=== PATIENT | male | born 1935 | race Caucasian/White ===

== ENCOUNTER 2020-11-15 05:01 | Inpatient (IN) ==
[2020-11-15] MEDS ORDERED: Naloxone 0.4 MG/ML INJ IVP PRN ×2 (06:17→11:18)
[2020-11-15] MEDS ORDERED: *HR* HYDROmorphone (PF) 1 MG/ML SYRINGE IVP ONE (06:28)
[2020-11-15] MEDS ORDERED: 0.9 % Sodium Chloride 500 ML IVC ONE (06:29)
[2020-11-15] MEDS ORDERED: Potassium Chloride 40 MEQ/200 ML BAG IVPB PRN ×2 (06:33→11:18)
[2020-11-15] MEDS ORDERED: Ondansetron 4 MG/2 ML VIAL IVP PRN ×2 (06:41→11:18)
[2020-11-15 06:59] LABS: ABG Base Excess -12 mEq/L (-2 to 3); ABG HCO3 16 mEq/L (21-27); ABG Oxygen Saturation 70 % (95-98); ABG PCO2 44 mmHg (35-45); ABG PH 7.18 pH Units (7.32-7.45); ABG PO2 45 mmHg (85-104); ABG TCO2 18 mEq/L (20-26)
[2020-11-15] MEDS ORDERED: Artificial Tears SOLN 15 ML BOTTLE BOTH EYES PRN ×2 (07:10→11:18)
[2020-11-15 07:13] LABS: Hematocrit 54.3 % (37.5-50.1); Hemoglobin 16.6 g/dL (12.9-16.9); Mean Corpuscular HGB Conc 30.6 g/dL (31.6-35.5); Mean Corpuscular Hemoglobin 28.9 pg (28.0-33.3); Mean Corpuscular Volume 94.6 fL (83.0-100.0); Mean Platelet Volume 9.6 fL (9.4-12.4); Platelet Count 166 K/mcL (140-400); Red Blood Count 5.74 M/mcL (4.19-5.50); White Blood Count 6.5 K/mcL (4.3-11.1)
[2020-11-15] MEDS ORDERED: FentaNYL (PF) 1,000 MCG/100 ML IV.SOLN IVC SCH (07:15)
[2020-11-15 07:17] LABS: INR 1.3; Prothrombin Time 14.5 Seconds (9.4-12.1)
[2020-11-15] MEDS ORDERED: Heparin 1,000 UNITS/500 mL 500 ML ONE (07:22)
[2020-11-15] MEDS ORDERED: Albumin Human 5% 12.5 GM/250 ML IV.SOLN ONE ×2 (07:24→08:33)
[2020-11-15] MEDS ORDERED: *HR* Vasopressin 20 UNIT/ML VIAL ONE (07:24)
[2020-11-15] MEDS ORDERED: Lidocaine -MPF 2% 2 ML VIAL ONE (07:24)
[2020-11-15] MEDS ORDERED: *HR* FentaNYL (PF) 100 MCG/2 ML VIAL ONE (07:26)
[2020-11-15] MEDS ORDERED: *HR* Etomidate 40 MG/20 ML VIAL IVP ONE (07:27)
[2020-11-15] MEDS ORDERED: *HR* Rocuronium Bromide 50 MG/5 ML VIAL ONE (07:29)
[2020-11-15] MEDS ORDERED: *HR* Succinylcholine 200 MG/10 ML VIAL IVP ONE (07:29)
[2020-11-15] MEDS ORDERED: Midazolam HCl 50 MG/100 ML IV.SOLN IVC SCH (07:30)
[2020-11-15] MEDS ORDERED: Norepinephrine 4 MG/254 ML IV.SOLN IVC SCH (07:30)
[2020-11-15] MEDS ORDERED: *HR* Atropine Sulfate 8 MG/20 ML VIAL IVP ONE (07:32)
[2020-11-15] MEDS ORDERED: *HR* Phenylephrine 10 MG/ML VIAL ONE (07:33)
[2020-11-15 07:41] LABS: Calcium 8.1 mg/dL (8.6-10.3); Potassium 3.7 mEq/L (3.5-5.1); Troponin I 0.51 ng/mL (< 0.04)
[2020-11-15] MEDS ORDERED: *HR* Midazolam HCl 2 MG/2 ML VIAL ONE (07:51)
[2020-11-15 07:52] LABS: Lymphocytes # 3.9 K/mcL (0.6-4.6); Monocytes # 1.7 K/mcL (0.0-1.3); Neutrophils # 0.9 K/mcL (1.6-8.9)
[2020-11-15 07:53] LABS: Platelet Estimate Normal (Normal); Reactive Lymphocytes Present (Not Present)
[2020-11-15 07:57] LABS: Albumin/Globulin Ratio 1.5 (1.1-2.2); Bilirubin,Total 1.6 mg/dL (0.3-1.0); Carcinoembryonic Antigen 8.7 ng/mL (Less than 5.0)
[2020-11-15] MEDS ORDERED: Vancomycin 1,500 MG/265 ML IV.SOLN IVPB ONE (08:00)
[2020-11-15] MEDS ORDERED: Vancomycin 1 EACH in 0.9 % Sodium Chloride 250 ML IVPB SCH ×2 (08:00→11:18)
[2020-11-15] MEDS ORDERED: Artificial Tears SOLN 15 ML BOTTLE BOTH EYES SCH (08:00)
[2020-11-15 08:15] LABS: VBG Ionized Calcium 1.11 mmol/L (1.15-1.35)
[2020-11-15 08:26] LABS: Albumin 2.6 g/dL (3.5-5.7); Albumin/Globulin Ratio 1.4 (1.1-2.2); Bilirubin,Direct 0.5 mg/dL (0.0-0.2); Bilirubin,Indirect 0.9 mg/dL (0.0-1.0); Bilirubin,Total 1.4 mg/dL (0.3-1.0); Globulin 1.8 g/dL (2.4-3.5); Magnesium 2.1 mg/dL (1.6-2.6); Phosphorous 4.3 mg/dL (2.7-4.5); Total Protein 4.4 g/dL (6.4-8.9)
[2020-11-15 08:44] LABS: ABG Base Excess -10 mEq/L (-2 to 3); ABG Chloride 115 mEq/L (98-107); ABG Glucose 88 mg/dL (60-95); ABG HCO3 18 mEq/L (21-27); ABG Oxygen Saturation 96 % (95-98); ABG PCO2 46 mmHg (35-45); ABG PO2 98 mmHg (85-104); ABG TCO2 19 mEq/L (20-26)
[2020-11-15] MEDS ORDERED: Piperacillin/Tazobactam 3.375 GM in 0.9 % Sodium Chloride Mini Bag 100 ML IVPB ONE (08:52)
[2020-11-15] MEDS ORDERED: Micafungin 100 MG in 0.9 % Sodium Chloride Mini Bag 100 ML IVPB SCH (09:00)
[2020-11-15] MEDS ORDERED: Pantoprazole 40 MG VIAL IVP SCH (09:00)
[2020-11-15] MEDS ORDERED: Chlorhexidine Rinse 15 ML MOUTHWASH MM SCH (09:00)
[2020-11-15 09:06] LABS: ABG Base Excess -9 mEq/L (-2 to 3); ABG Chloride 117 mEq/L (98-107); ABG Glucose 81 mg/dL (60-95); ABG HCO3 18 mEq/L (21-27); ABG Ionized Calcium 1.38 mmol/L (1.15-1.35); ABG Oxygen Saturation 92 % (95-98); ABG PCO2 46 mmHg (35-45); ABG PH 7.21 pH Units (7.32-7.45); ABG PO2 78 mmHg (85-104); ABG TCO2 20 mEq/L (20-26)
[2020-11-15 09:38] LABS: ABG Base Excess -9 mEq/L (-2 to 3); ABG Chloride 116 mEq/L (98-107); ABG Glucose 82 mg/dL (60-95); ABG HCO3 18 mEq/L (21-27); ABG Ionized Calcium 1.18 mmol/L (1.15-1.35); ABG Oxygen Saturation 88 % (95-98); ABG PCO2 41 mmHg (35-45); ABG PH 7.25 pH Units (7.32-7.45); ABG PO2 63 mmHg (85-104); ABG TCO2 19 mEq/L (20-26)
[2020-11-15] MEDS ORDERED: D10% in Water 500 ML IVC PRN (11:00)
[2020-11-15] MEDS ORDERED: Piperacillin/Tazobactam 3.375 GM in 0.9 % Sodium Chloride Mini Bag 100 ML IVPB SCH ×2 (12:00→17:00)
[2020-11-15] MEDS: FentaNYL (PF) 1,000 MCG/100 ML IV.SOLN IVC SCH ×2 (12:36→23:31)
[2020-11-15] MEDS: Midazolam HCl 50 MG/100 ML IV.SOLN IVC SCH ×2 (12:37→19:29)
[2020-11-15] MEDS: Norepinephrine 4 MG/254 ML IV.SOLN IVC SCH ×2 (12:37→18:24)
[2020-11-15] MEDS: Artificial Tears SOLN 15 ML BOTTLE BOTH EYES SCH ×3 (12:37→19:41)
[2020-11-15] MEDS ORDERED: D5% in Water 1,000 ML IVC ONE (13:41)
[2020-11-15] MEDS ORDERED: D5% in Water 1,000 ML IVC PRN (13:59)
[2020-11-15] MEDS ORDERED: *HR* Dextrose 50 % in Water (Vial) 50 ML VIAL IVP PRN (13:59)
[2020-11-15] MEDS ORDERED: Dextrose Gel 15 GM/37.5 ML TUBE PO PRN ×2 (13:59)
[2020-11-15 14:06] LABS: ABG Base Excess -12 mEq/L (-2 to 3); ABG HCO3 15 mEq/L (21-27); ABG Oxygen Saturation 92 % (95-98); ABG PCO2 36 mmHg (35-45); ABG PH 7.23 pH Units (7.32-7.45); ABG PO2 76 mmHg (85-104); ABG TCO2 16 mEq/L (20-26); Blood Gas VT 500 cc
[2020-11-15 14:28] LABS: VBG Ionized Calcium 1.07 mmol/L (1.15-1.35)
[2020-11-15 14:57] LABS: Albumin 2.6 g/dL (3.5-5.7); Albumin/Globulin Ratio 1.7 (1.1-2.2); Bilirubin,Direct 0.8 mg/dL (0.0-0.2); Bilirubin,Total 1.8 mg/dL (0.3-1.0); Calcium 7.6 mg/dL (8.6-10.3); Globulin 1.5 g/dL (2.4-3.5); Magnesium 1.8 mg/dL (1.6-2.6); Phosphorous 5.3 mg/dL (2.7-4.5); Potassium 4.4 mEq/L (3.5-5.1); Total Protein 4.1 g/dL (6.4-8.9); Troponin I 1.58 ng/mL (< 0.04)
[2020-11-15] MEDS ORDERED: Sodium Bicarbonate 50 MEQ/50 ML VIAL IVP ONE (15:20)
[2020-11-15 15:31] LABS: VBG Ionized Calcium 1.08 mmol/L (1.15-1.35)
[2020-11-15] MEDS ORDERED: Albumin Human 5% 25.0 GM/500 ML IV.SOLN ONE (15:34)
[2020-11-15 15:37] LABS: Hematocrit 49.7 % (37.5-50.1); Hemoglobin 15.4 g/dL (12.9-16.9); Mean Corpuscular Hemoglobin 29.7 pg (28.0-33.3); Mean Corpuscular Volume 95.8 fL (83.0-100.0); Mean Platelet Volume 10.1 fL (9.4-12.4); Platelet Count 154 K/mcL (140-400); Red Blood Count 5.19 M/mcL (4.19-5.50); Red Cell Distribution Width 14.5 % (11.5-14.5)
[2020-11-15 15:39] LABS: White Blood Count 10.3 K/mcL (4.3-11.1)
[2020-11-15 15:45] LABS: ABG Base Excess -12 mEq/L (-2 to 3); ABG HCO3 17 mEq/L (21-27); ABG Oxygen Saturation 84 % (95-98); ABG PCO2 45 mmHg (35-45); ABG PH 7.18 pH Units (7.32-7.45); ABG PO2 61 mmHg (85-104); ABG TCO2 18 mEq/L (20-26); Blood Gas Modality ASSIST CONTROL
[2020-11-15] MEDS ORDERED: *HR* Rocuronium Bromide 50 MG/5 ML VIAL IVP ONE (15:45)
[2020-11-15] MEDS: Albumin Human 5% 12.5 GM/250 ML IV.SOLN IVC SCH ×2 (15:46→16:54)
[2020-11-15] MEDS: Phenylephrine 20 MG in 0.9 % Sodium Chloride 250 ML IVC SCH (15:47)
[2020-11-15] MEDS: Insulin LISPRO 300 UNITS/3 ML VIAL SUBQ SCH ×2 (15:47→19:41)
[2020-11-15] MEDS ORDERED: Perflutren Lipid Microsphere 1.3 ML in 0.9 % Sodium Chloride 8.7 ML IVP PRN (15:49)
[2020-11-15 15:51] LABS: Albumin 2.6 g/dL (3.5-5.7); Albumin/Globulin Ratio 1.6 (1.1-2.2); Bilirubin,Direct 0.7 mg/dL (0.0-0.2); Bilirubin,Indirect 1.1 mg/dL (0.0-1.0); Bilirubin,Total 1.8 mg/dL (0.3-1.0); Calcium 7.7 mg/dL (8.6-10.3); Globulin 1.6 g/dL (2.4-3.5); Magnesium 1.9 mg/dL (1.6-2.6); Phosphorous 6.2 mg/dL (2.7-4.5); Potassium 4.8 mEq/L (3.5-5.1); Total Protein 4.2 g/dL (6.4-8.9)
[2020-11-15] MEDS ORDERED: Sodium Bicarbonate 150 MEQ in D5% in Water 500 ML IVC SCH (16:00)
[2020-11-15 16:05] LABS: Lymphocytes # 4.1 K/mcL (0.6-4.6); Monocytes # 0.4 K/mcL (0.0-1.3); Neutrophils # 5.8 K/mcL (1.6-8.9); Platelet Estimate Normal (Normal)
[2020-11-15] MEDS ORDERED: *HR* Midazolam HCl 5 MG/5 ML VIAL IVP ONE (16:47)
[2020-11-15] MEDS ORDERED: *HR* Etomidate 20 MG/10 ML AMPUL IVP ONE (16:47)
[2020-11-15] MEDS: Piperacillin/Tazobactam 3.375 GM in 0.9 % Sodium Chloride Mini Bag 100 ML IVPB SCH (16:58)
[2020-11-15] MEDS ORDERED: Clinimix E 5%-15% SOLUTION 2,000 ML, Parenteral Amino Acid 10% 0 ML with MVI, adult wi... IVC SCH (17:00)
[2020-11-15] MEDS ORDERED: Clinimix E 5%-15% SOLUTION 2,000 ML with MVI, adult with vitamin K 10 ML IVC SCH (17:00)
[2020-11-15 17:05] LABS: ABG Base Excess -13 mEq/L (-2 to 3); ABG HCO3 15 mEq/L (21-27); ABG Oxygen Saturation 99 % (95-98); ABG PCO2 44 mmHg (35-45); ABG PH 7.15 pH Units (7.32-7.45); ABG PO2 189 mmHg (85-104); ABG TCO2 17 mEq/L (20-26); Blood Gas VT 500 cc
[2020-11-15 19:15] LABS: ABG Base Excess -13 mEq/L (-2 to 3); ABG HCO3 14 mEq/L (21-27); ABG Oxygen Saturation 95 % (95-98); ABG PCO2 33 mmHg (35-45); ABG PH 7.23 pH Units (7.32-7.45); ABG PO2 89 mmHg (85-104); ABG TCO2 15 mEq/L (20-26); Blood Gas Modality ASSIST CONTROL; Blood Gas VT 550 cc
[2020-11-15 19:43] LABS: Protein/Creatinine Ratio,Urine 19.38 mg/mg (0.00-0.20)
[2020-11-15] MEDS: Chlorhexidine Rinse 15 ML MOUTHWASH MM SCH (19:44)
[2020-11-15 20:09] LABS: Sodium, Urine 42.7 mEq/L
[2020-11-15] MEDS: Norepinephrine 8 MG in 0.9 % Sodium Chloride 250 ML IVC SCH (20:25)
[2020-11-15] MEDS ORDERED: 0.9 % Sodium Chloride 1,000 ML ONE (23:00)
[2020-11-15 23:05] LABS: Potassium 4.7 mEq/L (3.5-5.1)
[2020-11-15] MEDS: Sodium Bicarbonate 150 MEQ in D5% in Water 1,000 ML IVC SCH (23:57)
[2020-11-16] MEDS: Artificial Tears SOLN 15 ML BOTTLE BOTH EYES SCH ×7 (00:11→23:26)
[2020-11-16] MEDS: Insulin LISPRO 300 UNITS/3 ML VIAL SUBQ SCH ×7 (00:11→23:13)
[2020-11-16] MEDS: Piperacillin/Tazobactam 3.375 GM in 0.9 % Sodium Chloride Mini Bag 100 ML IVPB SCH ×3 (01:07→17:24)
[2020-11-16] MEDS: Norepinephrine 8 MG in 0.9 % Sodium Chloride 250 ML IVC SCH ×5 (01:19→21:43)
[2020-11-16 02:09] LABS: Basophils % 0.3 %; Mean Corpuscular Hemoglobin 30.5 pg (28.0-33.3); Red Blood Count 4.62 M/mcL (4.19-5.50)
[2020-11-16 02:11] LABS: Hematocrit 46.2 % (37.5-50.1); Hemoglobin 14.1 g/dL (12.9-16.9); Immature Granulocytes % 1.3 % (0-4); Immature Platelets 5.1 % (1.1-6.1); Lymphocytes % 22.8 %; Mean Corpuscular HGB Conc 30.5 g/dL (31.6-35.5); Mean Platelet Volume 10.8 fL (9.4-12.4); Monocytes # 0.7 K/mcL (0.0-1.3); Neutrophils # 9.3 K/mcL (1.6-8.9); Nucleated Red Blood Cells 0.4 /100 WBC (0); Platelet Count 113 K/mcL (140-400); Red Cell Distribution Width 14.8 % (11.5-14.5); Segmented Neutrophils % 70.6 %; White Blood Count 13.1 K/mcL (4.3-11.1)
[2020-11-16 02:38] LABS: Platelet Estimate Slight Decrease (Normal); Reactive Lymphocytes Present (Not Present)
[2020-11-16 02:39] LABS: Anisocytosis 1+ (Not Present)
[2020-11-16] MEDS ORDERED: 0.9 % Sodium Chloride 500 ML IVC ONE (03:40)
[2020-11-16 03:49] LABS: ABG Base Excess -15 mEq/L (-2 to 3); ABG HCO3 14 mEq/L (21-27); ABG Oxygen Saturation 97 % (95-98); ABG PCO2 44 mmHg (35-45); ABG PH 7.12 pH Units (7.32-7.45); ABG PO2 117 mmHg (85-104); ABG TCO2 15 mEq/L (20-26); Blood Gas Modality ASSIST CONTROL; Blood Gas VT 550 cc
[2020-11-16] MEDS ORDERED: 0.9 % Sodium Chloride 500 ML ONE (03:50)
[2020-11-16] MEDS ORDERED: 0.9 % Sodium Chloride 1,000 ML IVC SCH (04:00)
[2020-11-16 04:13] LABS: VBG Ionized Calcium 0.89 mmol/L (1.15-1.35)
[2020-11-16] MEDS: Midazolam HCl 50 MG/100 ML IV.SOLN IVC SCH (05:41)
[2020-11-16 05:44] LABS: ABG Base Excess -16 mEq/L (-2 to 3); ABG HCO3 12 mEq/L (21-27); ABG Oxygen Saturation 99 % (95-98); ABG PCO2 32 mmHg (35-45); ABG PH 7.17 pH Units (7.32-7.45); ABG PO2 165 mmHg (85-104); ABG TCO2 13 mEq/L (20-26); Blood Gas Modality ASSIST CONTROL; Blood Gas VT 550 cc
[2020-11-16 07:03] LABS: Albumin 2.2 g/dL (3.5-5.7); Albumin/Globulin Ratio 2.4 (1.1-2.2); Bilirubin,Indirect 0.7 mg/dL (0.0-1.0); Bilirubin,Total 1.7 mg/dL (0.3-1.0); Calcium 5.8 mg/dL (8.6-10.3); Globulin 0.9 g/dL (2.4-3.5); Potassium 6.1 mEq/L (3.5-5.1); Total Protein 3.1 g/dL (6.4-8.9)
[2020-11-16] MEDS ORDERED: Calcium Gluconate 1gm/50mL 1 GM/50 ML BAG IVPB PRN (07:13)
[2020-11-16] MEDS: Chlorhexidine Rinse 15 ML MOUTHWASH MM SCH ×2 (07:47→19:52)
[2020-11-16] MEDS: *HR* Heparin 5,000 UNIT/ML VIAL SQ SCH ×2 (07:51→17:25)
[2020-11-16] MEDS ORDERED: Insulin Human Regular 10 UNIT in 0.9 % Sodium Chloride 10 ML IV ONE (07:54)
[2020-11-16 08:10] LABS: Nucleated Red Blood Cells 0.4 /100 WBC (0)
[2020-11-16 08:12] LABS: Hematocrit 45.1 % (37.5-50.1); Hemoglobin 13.3 g/dL (12.9-16.9); Immature Platelets 7.2 % (1.1-6.1); Mean Corpuscular HGB Conc 29.5 g/dL (31.6-35.5); Mean Corpuscular Hemoglobin 29.3 pg (28.0-33.3); Mean Corpuscular Volume 99.3 fL (83.0-100.0); Mean Platelet Volume 10.8 fL (9.4-12.4); Red Blood Count 4.54 M/mcL (4.19-5.50); Red Cell Distribution Width 14.8 % (11.5-14.5); White Blood Count 16.4 K/mcL (4.3-11.1)
[2020-11-16 08:22] LABS: Calcium 6.3 mg/dL (8.6-10.3); Potassium 6.3 mEq/L (3.5-5.1)
[2020-11-16 08:26] LABS: Platelet Count 85 K/mcL (140-400)
[2020-11-16] MEDS ORDERED: Micafungin 100 MG in 0.9 % Sodium Chloride Mini Bag 100 ML IVPB SCH (09:00)
[2020-11-16] MEDS ORDERED: Pantoprazole 40 MG VIAL IVP SCH (09:00)
[2020-11-16] MEDS: Sodium Bicarbonate 150 MEQ in D5% in Water 1,000 ML IVC SCH ×4 (09:33→23:26)
[2020-11-16] MEDS: Calcium Gluconate 1gm/50mL 1 GM/50 ML BAG IVPB SCH ×4 (09:33→19:24)
[2020-11-16] MEDS: Hydrocortisone Sodium Succ 100 MG/2 ML VIAL IVP SCH ×4 (09:33→23:26)
[2020-11-16 09:59] LABS: VBG Ionized Calcium 0.77 mmol/L (1.15-1.35)
[2020-11-16 10:15] LABS: Albumin 2.5 g/dL (3.5-5.7); Albumin/Globulin Ratio 1.9 (1.1-2.2); Alkaline Phosphatase 64 Units/L (34-104); BUN/Creatinine Ratio 12 (6-26); Bilirubin,Direct 1.6 mg/dL (0.0-0.2); Bilirubin,Total 2.6 mg/dL (0.3-1.0); Blood Urea Nitrogen 48 mg/dL (8-23); Calcium 6.2 mg/dL (8.6-10.3); Carbon Dioxide 11 mEq/L (23-29); Chloride 112 mEq/L (98-107); Globulin 1.3 g/dL (2.4-3.5); Glucose 58 mg/dL (70-105); Osmolality,Calculated 308 (280-300); Sodium 144 mEq/L (136-145); Total Protein 3.8 g/dL (6.4-8.9); eGFR For African Americans 18 (> 60); eGFR For Non-African Americans 15 (> 60)
[2020-11-16] MEDS: Phenylephrine 20 MG in 0.9 % Sodium Chloride 250 ML IVC SCH ×3 (10:26→22:20)
[2020-11-16] MEDS: D10% in Water 500 ML IVC PRN ×2 (10:55→16:07)
[2020-11-16 11:29] LABS: Lymphocytes # 1.6 K/mcL (0.6-4.6); Monocytes # 2.6 K/mcL (0.0-1.3); Neutrophils # 11.2 K/mcL (1.6-8.9); Platelet Estimate Decreased (Normal)
[2020-11-16] MEDS ORDERED: Albuterol Neb 7.5 MG, Ipratropium Neb 0.5 MG, Sodium Chloride for inhalation 9 ML IH ONE (11:50)
[2020-11-16] MEDS ORDERED: Calcium Chloride 1,000 MG in 0.9 % Sodium Chloride 100 ML IVPB ONE (12:00)
[2020-11-16] MEDS: FentaNYL (PF) 1,000 MCG/100 ML IV.SOLN IVC SCH (13:00)
[2020-11-16 14:05] LABS: Alanine Aminotransferase 2201 Units/L (7-52); Aspartate Amino Transferase > 3000 Units/L (13-39)
[2020-11-16 14:29] LABS: VBG Ionized Calcium 0.87 mmol/L (1.15-1.35)
[2020-11-16 15:11] LABS: Alanine Aminotransferase 3668 Units/L (7-52); Albumin 2.2 g/dL (3.5-5.7); Albumin/Globulin Ratio 1.8 (1.1-2.2); Alkaline Phosphatase 90 Units/L (34-104); Aspartate Amino Transferase > 3000 Units/L (13-39); BUN/Creatinine Ratio 12 (6-26); Bilirubin,Direct 1.5 mg/dL (0.0-0.2); Bilirubin,Indirect 1.2 mg/dL (0.0-1.0); Bilirubin,Total 2.7 mg/dL (0.3-1.0); Blood Urea Nitrogen 50 mg/dL (8-23); Calcium 7.2 mg/dL (8.6-10.3); Carbon Dioxide 13 mEq/L (23-29); Chloride 108 mEq/L (98-107); Globulin 1.2 g/dL (2.4-3.5); Glucose 117 mg/dL (70-105); Osmolality,Calculated 314 (280-300); Phosphorous 11.9 mg/dL (2.7-4.5); Potassium 7.1 mEq/L (3.5-5.1); Sodium 145 mEq/L (136-145); Total Protein 3.4 g/dL (6.4-8.9); eGFR For African Americans 17 (> 60); eGFR For Non-African Americans 14 (> 60)
[2020-11-16 15:55] LABS: ABG Base Excess -16 mEq/L (-2 to 3); ABG HCO3 13 mEq/L (21-27); ABG Oxygen Saturation 91 % (95-98); ABG PCO2 41 mmHg (35-45); ABG PH 7.11 pH Units (7.32-7.45); ABG PO2 82 mmHg (85-104); ABG TCO2 14 mEq/L (20-26); Blood Gas VT 550 cc
[2020-11-16 16:05] LABS: Vancomycin,Random 8 mcg/mL
[2020-11-16] MEDS ORDERED: Clinimix E 5%-15% SOLUTION 2,000 ML IVC SCH (17:00)
[2020-11-16] MEDS ORDERED: Clinimix E 5%-15% SOLUTION 2,000 ML, Parenteral Amino Acid 10% 0 ML with MVI, adult wi... IVC SCH (17:00)
[2020-11-16] MEDS ORDERED: Vancomycin 1,500 MG/265 ML IV.SOLN IVPB ONE (18:00)
[2020-11-16 19:05] LABS: Hematocrit 39.3 % (37.5-50.1); Mean Corpuscular HGB Conc 30.5 g/dL (31.6-35.5); Mean Corpuscular Hemoglobin 30.2 pg (28.0-33.3); Mean Corpuscular Volume 98.7 fL (83.0-100.0); Mean Platelet Volume 11.5 fL (9.4-12.4); Nucleated Red Blood Cells 0.6 /100 WBC (0); Red Blood Count 3.98 M/mcL (4.19-5.50); Red Cell Distribution Width 14.8 % (11.5-14.5); White Blood Count 23.3 K/mcL (4.3-11.1)
[2020-11-16 19:27] LABS: Alanine Aminotransferase 4170 Units/L (7-52); Alkaline Phosphatase 114 Units/L (34-104); Aspartate Amino Transferase > 3000 Units/L (13-39); BUN/Creatinine Ratio 12 (6-26); Bilirubin,Direct 1.6 mg/dL (0.0-0.2); Bilirubin,Total 2.6 mg/dL (0.3-1.0); Blood Urea Nitrogen 52 mg/dL (8-23); Calcium 6.6 mg/dL (8.6-10.3); Carbon Dioxide 13 mEq/L (23-29); Chloride 105 mEq/L (98-107); Glucose 109 mg/dL (70-105); Magnesium 2.3 mg/dL (1.6-2.6); Osmolality,Calculated 319 (280-300); Potassium 7.6 mEq/L (3.5-5.1); Sodium 147 mEq/L (136-145); eGFR For African Americans 16 (> 60); eGFR For Non-African Americans 13 (> 60)
[2020-11-16 20:30] LABS: Platelet Count 53 K/mcL (140-400)
[2020-11-16 20:34] LABS: Eosinophils # 1.4 K/mcL (0.0-0.6); Lymphocytes # 12.1 K/mcL (0.6-4.6); Monocytes # 0.5 K/mcL (0.0-1.3); Neutrophils # 8.4 K/mcL (1.6-8.9); Platelet Estimate Decreased (Normal); Reactive Lymphocytes Present (Not Present); Smudge Cells Present (Not Present); Toxic Granulation Present (Not Present)
[2020-11-16 23:57] LABS: VBG Ionized Calcium 0.74 mmol/L (1.15-1.35)
[2020-11-17 00:25] LABS: Albumin/Globulin Ratio 1.7 (1.1-2.2); Alkaline Phosphatase 175 Units/L (34-104); BUN/Creatinine Ratio 12 (6-26); Bilirubin,Direct 1.8 mg/dL (0.0-0.2); Bilirubin,Indirect 1.2 mg/dL (0.0-1.0); Blood Urea Nitrogen 51 mg/dL (8-23); Calcium 6.5 mg/dL (8.6-10.3); Carbon Dioxide 9 mEq/L (23-29); Chloride 104 mEq/L (98-107); Globulin 1.2 g/dL (2.4-3.5); Glucose 119 mg/dL (70-105); Magnesium 2.2 mg/dL (1.6-2.6); Osmolality,Calculated 315 (280-300); Phosphorous 16.1 mg/dL (2.7-4.5); Potassium 8.4 mEq/L (3.5-5.1); Sodium 145 mEq/L (136-145); Total Protein 3.2 g/dL (6.4-8.9); eGFR For African Americans 16 (> 60); eGFR For Non-African Americans 13 (> 60)
[2020-11-17 00:35] VITALS: BP 105/63
[2020-11-17 00:44] LABS: Alanine Aminotransferase > 5000 Units/L (7-52); Aspartate Amino Transferase > 3000 Units/L (13-39)
[2020-11-17] MEDS ORDERED: Piperacillin/Tazobactam 3.375 GM in 0.9 % Sodium Chloride Mini Bag 100 ML IVPB SCH (05:00)
[2020-11-17] MEDS ORDERED: Clinimix E 5%-15% SOLUTION 2,000 ML, Parenteral Amino Acid 10% 0 ML with MVI, adult wi... IVC SCH (17:00)
[2020-11-17] MEDS ORDERED: Clinimix E 5%-15% SOLUTION 2,000 ML IVC SCH (17:00)
== END 2020-11-17 01:00 | disposition expired | DRG 853 ==
LOC: ICNU → OBSVTOIN 06:06
PROVIDERS: ADMIT Student in an Organized Health Care Education/Training Program; ATTEND Student in an Organized Health Care Education/Training Program